=== PATIENT | male | born 1965 | race Hispanic/Latino ===

== ENCOUNTER 2017-08-06 12:54 | Emergency (ER) | payer OTHER ==
[~2017-08-06] VITALS: Ht 170.2 cm; Wt 152.0 kg
[~2017-08-06 12:54] MED LIST: ADVAIR DISK2 IN; KEFLEX500 M1 PO; PREDNISONE20 MG PO; PROAIR HFA IN
[2017-08-06 14:45] VITALS: BP 159/99
== END 2017-08-06 14:45 | disposition home or self-care (01) | DRG 605 ==
LOC: ED 12:54
DX: S80.01XA Contusion of right knee, initial encounter (principal); W22.8XXA Striking against or struck by other objects, initial encounter; Y93.89 Activity, other specified; Y92.89 Other specified places as the place of occurrence of the external cause

== ENCOUNTER 2019-02-06 06:21 | Emergency (ER) | payer MEDICAID ==
[2019-02-06 06:51] LABS: HEMOGLOBIN 16.9 g/dl (14.0-18.0); IMMATURE GRANULOCYTES 0.9 % (0.0-5.0); MEAN CORPUSCULAR HGB 28.3 pG CALC (26.0-32.0); MEAN CORPUSCULAR HGB CONC 27.8 g/L CALC (32.0-36.0); NEUT# 5.76 thou/uL (1.82-7.42); RED BLOOD COUNT 5.97 mill/uL (4.70-6.10); RED CELL DISTRI WIDTH 14.6 % (11.5-15.5)
[2019-02-06 06:59] LABS: HEMATOCRIT 60.7 % (39.0-50.0)
[2019-02-06 07:00] LABS: MEAN CELL VOLUME 101.7 fL CALC (80.0-100.0)
[2019-02-06 07:06] LABS: ALBUMIN 4.2 g/dL (3.2-5.0); BILIRUBIN, TOTAL 0.4 mg/dL (0.0-1.4); CREATININE 1.5 mg/dL (0.7-1.3); POTASSIUM 3.9 mmol/l (3.5-5.1); TOTAL PROTEIN 7.6 g/dL (6.3-8.2)
[2019-02-06 07:07] LABS: ACT PARTIAL THROMBO TIME 24.1 SECONDS (20.0-32.5); INTERNATIONAL NORMALIZED RATIO 1.2 RATIO (0.7-1.3); PROTHROMBIN TIME 12.6 SECONDS (9.0-12.5)
== END 2019-02-06 06:52 | disposition expired | DRG 298 ==
LOC: ED 06:21
PROVIDERS: Emergency Medicine
PROC: 5A12012 Performance of Cardiac Output, Single, Manual (ICD-10-PCS; principal; 2019-02-06)
PROC: 0BH18EZ Insertion of Endotracheal Airway into Trachea, Via Natural or Artificial Opening Endoscopic (ICD-10-PCS; 2019-02-06)
DX: I46.9 Cardiac arrest, cause unspecified (principal); I49.01 Ventricular fibrillation; I25.10 Atherosclerotic heart disease of native coronary artery without angina pectoris; G47.30 Sleep apnea, unspecified; E66.9 Obesity, unspecified; T50.916A Underdosing of multiple unspecified drugs, medicaments and biological substances, initial encounter; Z91.128 Patient's intentional underdosing of medication regimen for other reason; Z95.5 Presence of coronary angioplasty implant and graft
CPT/HCPCS: J0282